=== PATIENT | male | born 1965 | race Hispanic/Latino ===

== ENCOUNTER → 2019-12-16 | Outpatient (CLI) | payer OTHER ==
--- NOTE | 2019-12-16 16:57 | Diagnostic Imaging Report ---
EXAM: WRIST LEFT 2 VIEWS DATE: 12/16/2019 4:29 PM INDICATION: Left wrist pain COMPARISON: None FINDINGS: AP and lateral views are obtained of the left wrist. No acute fracture or dislocation is appreciated. Bony mineralization is within normal limits. No focal lytic or blastic abnormality is identified. The surrounding soft tissues are unremarkable without evidence for radiopaque foreign body. IMPRESSION: No acute radiographic abnormality identified on this 2 view examination of the left wrist. Signed by: Dr. Darron Garcia MD on 12/16/2019 4:54 PM
== END ==
LOC: RAD 15:41
PROVIDERS: ATTEND Internal Medicine
DX: M25.532 Pain in left wrist (principal)